=== PATIENT | female | born 1995 | race Caucasian/White ===

== ENCOUNTER 2020-12-09 19:36 | Emergency (ER) | payer BC ==
[2020-12-09 20:16] LABS: CHLORIDE,CL 104 mEq/L (98-106); SODIUM,NA 140 mEq/L (136-145)
[2020-12-09 20:17] LABS: PTT,PARTIAL THROMBOPLSTIN TIME 24.5 SEC (23.2-32.3)
--- NOTE | 2020-12-09 20:40 | EDM.PDOC ---
ED HPI GENERAL MEDICAL PROBLEM - General Chief Complaint: Chest Pain Stated Complaint: tachycardic Time Seen by Provider: 12/09/20 20:10 Source of Information: Reports: Patient History Limitations: Reports: No Limitations - History of Present Illness INITIAL COMMENTS - FREE TEXT/NARRATIVE: Radha is a 25 year old female presents to ER with tachycardia. Had gone to [facility], [place] and felt dizzy when she arrived. Was told by another nurse there that she looked pale. Sat down, drank some water but when checking pulse, noted it was around 150. Denies chest pain or shortness of breath. Can feel the rapid heart rate. Has not had a fever. No nausea/vomiting or diarrhea. Does feel like she has been drinking enough fluids. Denies energy drinks, does have coffee in the am. Not currently using the protein pre-work out drinks like she had before. Does get tested for covid 2 times per week at her job. Denies urinary concerns. Does relate that something similar happened to her several years ago, wore a monitor and was in sinus tach off and on. Was placed on metoprolol, thought may be related to her thyroid. Had repeat testing and everything "was fine". Was not able to tolerate the metoprolol as it dropped her blood pressure. 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 - Infectious Disease History Infectious Disease History: Reports: None - Past Surgical History HEENT Surgical History: Reports: Oral Surgery Social & Family History - Family History Family Medical History: No Pertinent Family History - Tobacco Use Tobacco Use Status *Q: Never Tobacco User Second Hand Smoke Exposure: No - Caffeine Use Caffeine Use: Reports: Coffee - Recreational Drug Use Recreational Drug Use: No - Living Situation & Occupation Living situation: Reports: Single Occupation: Student ED ROS GENERAL - Review of Systems Review Of Systems: See Below Constitutional: Denies: Fever, Chills, Malaise, Weakness, Fatigue, Night Sweats, Diaphoresis, Decreased Appetite, Weight Loss, Weight Gain HEENT: Denies: Ear Pain, Rhinitis, Sinus Problem, Throat Pain, Vision Change Respiratory: Denies: Shortness of Breath, Pleuritic Chest Pain, Cough Cardiovascular: Reports: Palpitations. Denies: Chest Pain Endocrine: Denies: Fatigue GI/Abdominal: Denies: Abdominal Pain, Constipation, Diarrhea, Nausea, Vomiting : Reports: No Symptoms Musculoskeletal: Reports: No Symptoms Skin: Reports: No Symptoms Neurological: Reports: Dizziness ED EXAM, GENERAL - Physical Exam Exam: See Below Exam Limited By: No Limitations General Appearance: Alert, WD/WN, No Apparent Distress Ears: Normal External Exam, Normal TMs Nose: Normal Inspection, Normal Mucosa, No Blood Throat/Mouth: Normal Inspection, Normal Oropharynx Head: Normocephalic Neck: Normal Inspection, Supple, Non-Tender Respiratory/Chest: No Respiratory Distress, Lungs Clear, Normal Breath Sounds Cardiovascular: Tachycardia GI/Abdominal: Normal Bowel Sounds, Soft, Non-Tender Neurological: Alert, Oriented Skin Exam: Warm, Dry Course - Vital Signs Last Recorded V/S: Last Vital Signs Temp 97.4 F 12/09/20 19:47 Pulse 96 12/09/20 20:54 Resp 12 12/09/20 20:54 BP 118/91 H 12/09/20 20:54 Pulse Ox 98 12/09/20 19:47 - Orders/Labs/Meds Orders: Active Orders 24 hr Category Date Time Status EKG 12 Lead [EK] Stat Ther 12/09/20 20:02 Ordered Labs: Laboratory Tests 12/09/20 12/09/20 12/09/20 Range/Units 20:00 20:00 20:00 WBC 9.7 (4.0-11.0) 10^3/uL RBC 4.59 (4.00-5.50) x10^6/uL Hgb 13.6 (12.0-16.0) g/dL Hct 39.1 (37.0-47.0) % MCV 85.2 (83.0-97.0) fL MCH 29.6 (27.0-32.0) pg MCHC 34.8 (32.0-36.0) g/dL RDW Coeff of Cherise 12.2 (11.0-15.0) % Plt Count 290 (150-400) 10^3/uL Immature Gran % (Auto) 0.1 (0.0-4.9) % Neut % (Auto) 56.1 (41-71) % Lymph % (Auto) 33.9 (24-44) % Hickman % (Auto) 8.5 (0-10) % Eos % (Auto) 0.9 (0-6) % Baso % (Auto) 0.5 (0-1) % Neut # (Auto) 5.46 (1.80-8.00) x10^3/uL Lymph # (Auto) 3.30 (0.60-5.00) 10^3/uL Hickman # (Auto) 0.83 (0.00-1.50) 10^3/uL Eos # (Auto) 0.09 (0.00-1.50) 10^3/uL Baso # (Auto) 0.05 (0.00-0.50) 10^3/uL Immature Gran # (Auto) 0.01 (0.00-0.49) 10^3/uL PT 10.1 (9.7-12.3) SEC INR 0.93 (0.92-1.18) APTT 24.5 (23.2-32.3) SEC Sodium 140 (136-145) mEq/L Potassium 3.5 (3.5-5.0) mEq/L Chloride 104 (98-106) mEq/L Carbon Dioxide 27 (21-32) mmol/L BUN 8 (7-18) mg/dL Creatinine 0.9 (0.6-1.0) mg/dL Est Cr Clr Drug Dosing 75.58 mL/min Estimated GFR (MDRD) > 60 (>=60) mL/min Glucose 118 H (75-99) mg/dL Calcium 9.0 (8.4-10.1) mg/dL Magnesium 1.8 (1.8-2.4) mg/dL Total Bilirubin 0.3 (0.0-1.0) mg/dL AST 17 (15-37) U/L ALT 20 (12-78) U/L Alkaline Phosphatase 112 (46-116) U/L Lactate Dehydrogenase 142 (100-190) U/L Creatine Kinase 224 H (21-215) U/L Total Protein 7.7 (6.4-8.2) g/dL Albumin 3.8 (3.4-5.0) g/dL Lipase 99 (73-393) U/L TSH, Ultra Sensitive (0.36-5.60) uIU/mL Urine HCG, Qual 12/09/20 12/09/20 Range/Units 20:00 20:25 WBC (4.0-11.0) 10^3/uL RBC (4.00-5.50) x10^6/uL Hgb (12.0-16.0) g/dL Hct (37.0-47.0) % MCV (83.0-97.0) fL MCH (27.0-32.0) pg MCHC (32.0-36.0) g/dL RDW Coeff of Cherise (11.0-15.0) % Plt Count (150-400) 10^3/uL Immature Gran % (Auto) (0.0-4.9) % Neut % (Auto) (41-71) % Lymph % (Auto) (24-44) % Hickman % (Auto) (0-10) % Eos % (Auto) (0-6) % Baso % (Auto) (0-1) % Neut # (Auto) (1.80-8.00) x10^3/uL Lymph # (Auto) (0.60-5.00) 10^3/uL Hickman # (Auto) (0.00-1.50) 10^3/uL Eos # (Auto) (0.00-1.50) 10^3/uL Baso # (Auto) (0.00-0.50) 10^3/uL Immature Gran # (Auto) (0.00-0.49) 10^3/uL PT (9.7-12.3) SEC INR (0.92-1.18) APTT (23.2-32.3) SEC Sodium (136-145) mEq/L Potassium (3.5-5.0) mEq/L Chloride (98-106) mEq/L Carbon Dioxide (21-32) mmol/L BUN (7-18) mg/dL Creatinine (0.6-1.0) mg/dL Est Cr Clr Drug Dosing mL/min Estimated GFR (MDRD) (>=60) mL/min Glucose (75-99) mg/dL Calcium (8.4-10.1) mg/dL Magnesium (1.8-2.4) mg/dL Total Bilirubin (0.0-1.0) mg/dL AST (15-37) U/L ALT (12-78) U/L Alkaline Phosphatase (46-116) U/L Lactate Dehydrogenase (100-190) U/L Creatine Kinase (21-215) U/L Total Protein (6.4-8.2) g/dL Albumin (3.4-5.0) g/dL Lipase (73-393) U/L TSH, Ultra Sensitive 1.63 (0.36-5.60) uIU/mL Urine HCG, Qual Negative - Re-Assessments/Exams Free Text/Narrative Re-Assessment/Exam: 12/09/20 Patient's labs normal other than CK. She denies any muscular injury, lifting/working out. Advised to push fluids. Rest. Return if continues to persist and further work up would be needed. Departure - Departure Time of Disposition: 20:53 Disposition: Home, Self-Care 01 Condition: Good Clinical Impression: Tachycardia Instructions: Sinus Tachycardia Forms: ED Department Discharge Additional Instructions: 1. Push fluids 2. Decrease caffeine intake 3. Rest 4. If tachycardia persists, will need further work up, ie. zio patch. 5. Call with any questions or concerns. Sepsis Event Note (ED) - Evaluation Sepsis Screening Result: No Definite Risk - Focused Exam Vital Signs: Vital Signs Temp Pulse Resp BP Pulse Ox 12/09/20 20:54 96 12 118/91 H 12/09/20 20:36 111 H 17 12/09/20 19:47 97.4 F 133 H 19 130/89 98 - My Orders Last 24 Hours: My Active Orders 12/09/20 20:02 EKG 12 Lead [EK] Stat - Assessment/Plan Last 24 Hours: My Active Orders 12/09/20 20:02 EKG 12 Lead [EK] Stat
[2020-12-09 20:54] VITALS: BP 118/91; PULSE 96
== END 2020-12-09 21:00 | disposition home or self-care (01) ==
LOC: CC.ED 19:36
DX: R00.0 Tachycardia, unspecified (principal)
CPT/HCPCS: 36415; 80053; 81025; 82550; 83615; 83690; 83735; 84443; 85025; 85610; 85730; 93005; 99285-25